=== PATIENT | male | born 1945 | race Caucasian/White ===

== ENCOUNTER 2022-09-17 12:54 | Emergency (ER) | payer MEDICARE, SELFPAY ==
[2022-09-17 12:57] VITALS: BP 138/73; PULSE 71; RESP 18; TEMP 36.4; O2SAT 98; BMI 30.1
--- NOTE | 2022-09-17 14:50 | ED_ITS ---
HPI - Back Pain/Injury General Chief Complaint: Back Injury/Pain Stated Complaint: Lower back pain Time Seen by Provider: 09/17/22 14:20 History of Present Illness HPI Narrative: This 77-year-old male comes in with worsening low back pain. He states that he fell a couple times about 2 weeks or so ago. He did go in at that time to the clinic and had an x-ray of his low back. 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 Since then he has had ongoing pain and states that it is worse at times recently. He reports pain across the low back and is more prominent on the right side. He denies having any any pain radiating down his right leg. He has been taking Tylenol and ibuprofen and states that he has some Flexeril also. These medicines have not helped him. Related Data Previous Rx's Medication Instructions Recorded hydrocodone 5 mg-acetaminophen 325 1 tab PO Q4-6H PRN pain #20 tabs 09/17/22 mg tablet ketorolac 10 mg tablet 10 mg PO Q8H 5 days #15 tabs 09/17/22 methylprednisolone 4 mg tablets in See Rx Instructions PO .COMPLEX 09/17/22 a dose pack (Medrol (Tony)) #21 ea Allergies Allergy/AdvReac Type Severity Reaction Status Date / Time No Known Drug Allergies Allergy Verified 09/17/22 13:01 Review of Systems Status of ROS: Reports: 10 or more systems reviewed and unremarkable except as noted in History and below Narrative: Constitutional: No fevers, no weight gain or loss. Eyes: No discharge. No vision changes. HENT: No congestion, no sore throat, no ear pain. Cardiovascular: No chest pain, no palpitations. Respiratory: No shortness of breath, no wheezes, no cough. Gastrointestinal: No abdominal pain, no vomiting, no diarrhea. Genitourinary: No dysuria, no hematuria. Musculoskeletal: Normal range of motion. Low back pain as described above. Skin: No rashes, no pruritis. Neurological: No dizziness, weakness, sensory change, speech change. Endo/Heme/Allergies: No bruising or bleeding. No polydipsia. Pysch: no suicidality, no anxiety, no insomnia. All other systems reviewed and are negative. PFSH PFSH Social History Smoking Status: Never smoker Do you use any of these nicotine containing products: None How often do you have a drink containing alcohol: never AUDIT-C Alcohol total score: 0 Non-prescribed substance use: denies use service: Yes Exam Narrative: Exam Narrative: Constitutional: Well-developed, well-nourished, no acute distress. HEENT: Normocephalic, atraumatic. Neck: Normal range of motion. Nontender. Supple. Heart: Regular. No murmurs. Normal rate. Intact distal pulses. Lungs: Clear to auscultation. No chest discomfort. No wheezes, rhonchi, or rales. Abdomen: Normal bowel sounds. Nontender. No rebound tenderness. Genitalia: Deferred. Back: No midline tenderness. Normal range of motion. Pain across the low back more prominent on the right. Pain extends into the right buttocks but not down his right leg. Straight leg raise is negative. Extremities: Normal range of motion. No injury. Skin: Intact. No rash. Warm. No erythema or pallor. Neurologic: No altered sensation. No weakness. Alert and oriented. Psychiatric: No suicidality. No anxiety or depression. No insomnia. Nursing notes and vitals signs are reviewed. Const: Vital Signs, click to edit/add: Vital Signs - 24 hr 09/17/22 12:57 Temperature 97.6 F Pulse Rate [Pulse Oximeter] 71 Respiratory Rate 18 Blood Pressure [Ri ght Upper Arm] 138/73 Pulse Oximetry 98 Oxygen Delivery Me thod Room Air Course Vital Signs Vital signs: Initial Vital Signs Temperature 97.6 F 09/17/22 12:57 Temperature Source Temporal Artery Scan 09/17/22 12:57 Pulse Rate 71 09/17/22 12:57 Pulse Rhythm 09/17/22 12:57 Pulse Strength 3+ Normal 09/17/22 12:57 Respiratory Rate 18 09/17/22 12:57 Blood Pressure 138/73 09/17/22 12:57 Blood Pressure Mean 94 09/17/22 12:57 Blood Pressure Position Sitting 09/17/22 12:57 Pulse Oximetry 98 09/17/22 12:57 Oxygen Delivery Method 09/17/22 12:57 Vital Signs Temperature 97.6 F 09/17/22 12:57 Pulse Rate 71 09/17/22 12:57 Respiratory Rate 18 09/17/22 12:57 Blood Pressure 138/73 09/17/22 12:57 Pulse Oximetry 98 09/17/22 12:57 Oxygen Delivery Method 09/17/22 12:57 Temperature 97.6 F 09/17/22 12:57 Pulse Rate 71 09/17/22 12:57 Respiratory Rate 18 09/17/22 12:57 Blood Pressure 138/73 09/17/22 12:57 Pulse Oximetry 98 09/17/22 12:57 Oxygen Delivery Method 09/17/22 12:57 MDM - Back Pain/Injury MDM Narrative Medical decision making narrative: This patient comes in with low back pain that seems to be worsening over these past couple weeks. He did have an x-ray a couple weeks ago and has not had any injury event since then. I did discuss imaging options today but indicated that no likelihood of further information by repeating x-ray imaging with no new injury event. He may be having some nerve impingement. He did receive an intramuscular injection of morphine 10 mg. Prescriptions for Toradol, Mel[place], and Medrol Dosepak are provided. Patient does have type 2 diabetes and is taking insulin. He understands that this steroid will temporarily increase his blood glucose levels. He does have a follow-up appointment in the spine clinic with Dr. Lee. This appointment is not yet to occur for about 3 weeks. I encouraged making a phone call to look for an earlier appointment if needed. Discharge Plan Discharge Clinical Impression: Lumbago Patient Disposition: Home, Self-Care Condition: Stable Additional Instructions: Take medication as needed and indicated. Follow up with Spine Clinic as scheduled or call [phone] for possible earlier appointment. Prescriptions: New hydrocodone-acetaminophen 5-325 mg tablet 1 tab PO Q4-6H PRN (Reason: pain) Qty: 20 0RF ketorolac 10 mg tablet 10 mg PO Q8H 5 Days Qty: 15 0RF methylprednisolone [Medrol (Tony)] 4 mg tablets,dose pack See Rx Instructions .ROUTE .COMPLEX Qty: 21 0RF Rx Instructions: orally per package directions Follow Up/Referrals: Tyler Malave MD [Primary Care Provider] - Stand Alone Forms: [facility] Info Instructions
[2022-09-17 14:59] VITALS: BP 125/75; PULSE 16; RESP 16; TEMP 36.2; O2SAT 93
[2022-09-17] MEDS: MORPHINE 10 MG/ML inj IM (15:00)
== END 2022-09-17 15:12 | disposition home or self-care (01) ==
PROVIDERS: Emergency Provider Emergency Medicine Emergency Medical Services; PCP Family Medicine
DX: M54.50 Low back pain, unspecified (principal)
CPT/HCPCS: 96372; 99284; J2270

== ENCOUNTER 2025-04-13 07:35 | Outpatient (CLI) | payer MEDICARE, SELFPAY ==
[2025-04-13] MEDS: SODIUM CHLORIDE 0.9 % (FLUSH) 10 ML SYRINGE IVF (09:25)
[2025-04-13] MEDS: REGADENOSON 0.4 MG/5 ML SYRINGE IVP (09:25)
[2025-04-13 09:47] VITALS: BP 153/77; PULSE 84; RESP 18
--- NOTE | 2025-04-13 11:26 | W.PM.STED ---
Stress Test Note Date Date Seen: 04/13/25 Date of test: 04/13/25 Providers Primary care provider: Tyler Malave Stress test physician: Leonora Agarwal Stress Test Note Stress test ordered: Lexiscan Indication for test: Chest pain Stress test medicine: Maco Results discussion: Resting EKG: Shows sinus rhythm 71 beats per minute. Resting blood pressure: 126/74 Stress test: Patient has a walking Lexiscan ordered and he is consented on this, agrees to proceed. At 4 minutes of walking, he started to become more diaphoretic, fatigue/weak. We did have to stop the treadmill. He had no chest pain, no shortness of breath. He had a little nausea initially with the infusion of the regadenoson. His blood pressure maintained, no diagnostic EKG criteria for ischemia met, no arrhythmia. Some tracings with artifact. Patient's symptoms resolved by the end of the stress test. He was actually given some juice and something to eat given that he is diabetic and did take his nightly insulin the night before. He had not taken any of his medicines. He will have post stress nuclear medicine images obtained. Impression: Diaphoresis and fatigue during test but could be plausibly explained by a diabetes, no EKG evidence of ischemia noted. Follow up suggested: Patient will get his nuclear medicine images completed, this will couple this report for full formal diagnostic. He is discharged in stable condition.
== END 2025-04-13 12:09 | disposition home or self-care (01) ==
LOC: STRESS 07:38
PROVIDERS: PCP Family Medicine; Visit Provider Family Medicine
DX: R07.9 Chest pain, unspecified (principal); R53.83 Other fatigue
CPT/HCPCS: 78452; 93016; 93017; A9500; J2785